=== PATIENT | female | born 1975 | race Hispanic/Latino ===

== ENCOUNTER 2023-04-28 15:17 | Emergency (ER) | payer OTHER, SELFPAY ==
[2023-04-28 15:29] VITALS: BP 131/83; PULSE 85; RESP 24; TEMP 37.1; O2SAT 99; BMI 27.4
--- NOTE | 2023-04-28 15:46 | ED.ABDPAIN ---
HPI - Abdominal Pain <Shari Alvarez PA-C - Last Filed: 04/28/23 17:41> General Chief Complaint: Abdominal Pain Stated Complaint: ABD pain Time Seen by Provider: 04/28/23 15:38 Source: patient and family Mode of arrival: Wheelchair History of Present Illness HPI narrative: Patient is a 47-year-old female presenting for evaluation of 4 days of burning with urination. She denies any fever. She states that her pain has significantly worsened today with pain in her right lower flank as well as in her lower abdomen. She reports that her sister was diagnosed with polycystic kidney disease. She notes that she had a kidney infection or possible stone along time ago and she can not remember when. She reports her last urinary tract infection was 14 years ago. She states she had a cystoscopy 12 years ago because of blood in her urine with no abnormal results. She denies nausea or vomiting. She reports a previous tubal ligation. She denies other abdominal surgeries. Related Data Previous Rx's Medication Instructions Recorded cephalexin 500 mg capsule 500 mg PO QID 5 days #20 caps 04/28/23 Allergies Allergy/AdvReac Type Severity Reaction Status Date / Time lisinopril AdvReac Intermediate Cough Verified 04/28/23 15:29 Review of Systems <Shari Alvarez PA-C - Last Filed: 04/28/23 17:41> Review of Systems Narrative: see HPI Patient History <Shari Alvarez PA-C - Last Filed: 04/28/23 17:41> Social History Smoking Status: Never smoker Smoking Status: Never smoker Substance Use Type: does not use Exam <Shari Alvarez PA-C - Last Filed: 04/28/23 17:41> Initial Vital Signs Initial Vital Signs: Vital Signs Temperature 98.8 F 04/28/23 15:29 Pulse Rate 85 04/28/23 15:29 Respiratory Rate 24 04/28/23 15:29 Blood Pressure 131/83 04/28/23 15:29 Pulse Oximetry 99 04/28/23 15:29 Oxygen Delivery Method Room Air 04/28/23 15:29 GENERAL: 47 year old patient appears stated age. Well-developed patient, in no acute distress. HEAD: Atraumatic. Normocephalic. EYES: Pupils equal round CARDIOVASCULAR: Regular rate and rhythm without murmurs, gallops, or rubs. RESPIRATORY: Clear to auscultation. Breath sounds equal bilaterally. No wheezes, rales, or rhonchi. GASTROINTESTINAL: Tender over suprapubic area. BACK: Nontender without deformity or crepitance. Right lower flank tenderness, no CVA tenderness NEURO: AOx3. SKIN: No rash or erythema of visible areas <Rick Montes De Oca DO - Last Filed: 04/28/23 17:42> Initial Vital Signs Initial Vital Signs: Vital Signs Temperature 98.8 F 04/28/23 15:29 Pulse Rate 85 04/28/23 15:29 Respiratory Rate 24 04/28/23 15:29 Blood Pressure 131/83 04/28/23 15:29 Pulse Oximetry 99 04/28/23 15:29 Oxygen Delivery Method Room Air 04/28/23 15:29 Course <Shari Alvarez PA-C - Last Filed: 04/28/23 17:41> Orders Ordered: ED Orders 04/28/23 15:47 Complete Blood Count AUTO DIFF Stat Comprehensive Metabolic Panel Stat Lipase Stat 04/28/23 15:54 Urine Culture Stat Urine Microscopic Stat 04/28/23 16:00 CT kidney ureter bladder (KUB) Stat Acetaminophen (Acetaminophen 325 Mg Tablet) 650 mg PO Q6H PRN PRN Reason: Fever/Mild Pain (1-3) Last Admin: 04/28/23 16:00 Dose: 650 mg Documented By: DELMY Ondansetron HCl (Ondansetron 4 Mg Odt) 4 mg PO NOW PRN PRN Reason: Nausea And Vomiting Ondansetron HCl (Ondansetron 4 Mg/2 Ml Inj) 4 mg IV NOW PRN PRN Reason: Nausea And Vomiting Discontinued Medications Cephalexin HCl (Cephalexin 250 Mg Capsule) 500 mg PO NOW ONE Stop: 04/28/23 17:33 Sodium Chloride (Normal Saline 0.9%) 1,000 mls @ 1,000 mls/hr IV BOLUS ONE Stop: 04/28/23 17:22 Last Infusion: 04/28/23 17:26 Dose: 0 mls/hr Documented By: Admin: 04/28/23 17:05 Dose: 1,000 mls/hr Documented By: HERSON Ketorolac Tromethamine (Ketorolac 30 Mg/Ml Vial) 15 mg IV NOW ONE Stop: 04/28/23 15:53 Last Admin: 04/28/23 16:00 Dose: 15 mg Documented By: DELMY Vital Signs Vital signs: Vital Signs - 8 hr 04/28/23 15:29 Temperature 98.8 F Pulse Rate 85 Respiratory Rate 24 Blood Pressure 131/83 Pulse Oximetry 99 Oxygen Delivery Method Room Air <Rick Montes De Oca DO - Last Filed: 04/28/23 17:42> Orders Ordered: ED Orders 04/28/23 15:47 Complete Blood Count AUTO DIFF Stat Comprehensive Metabolic Panel Stat Lipase Stat 04/28/23 15:54 Urine Culture Stat Urine Microscopic Stat 04/28/23 16:00 CT kidney ureter bladder (KUB) Stat Acetaminophen (Acetaminophen 325 Mg Tablet) 650 mg PO Q6H PRN PRN Reason: Fever/Mild Pain (1-3) Last Admin: 04/28/23 16:00 Dose: 650 mg Documented By: DELMY Ondansetron HCl (Ondansetron 4 Mg Odt) 4 mg PO NOW PRN PRN Reason: Nausea And Vomiting Ondansetron HCl (Ondansetron 4 Mg/2 Ml Inj) 4 mg IV NOW PRN PRN Reason: Nausea And Vomiting Discontinued Medications Cephalexin HCl (Cephalexin 250 Mg Capsule) 500 mg PO NOW ONE Stop: 04/28/23 17:33 Sodium Chloride (Normal Saline 0.9%) 1,000 mls @ 1,000 mls/hr IV BOLUS ONE Stop: 04/28/23 17:22 Last Infusion: 04/28/23 17:26 Dose: 0 mls/hr Documented By: Admin: 04/28/23 17:05 Dose: 1,000 mls/hr Documented By: HERSON Ketorolac Tromethamine (Ketorolac 30 Mg/Ml Vial) 15 mg IV NOW ONE Stop: 04/28/23 15:53 Last Admin: 04/28/23 16:00 Dose: 15 mg Documented By: DELMY Vital Signs Vital signs: Vital Signs - 8 hr 04/28/23 15:29 Temperature 98.8 F Pulse Rate 85 Respiratory Rate 24 Blood Pressure 131/83 Pulse Oximetry 99 Oxygen Delivery Method Room Air MDM - Abdominal Pain <Shari Alvarez PA-C - Last Filed: 04/28/23 17:41> Lab Data 04/28/23 15:47 01/07/24 15:47 Labs: Lab Results 04/28/23 04/28/23 Range/Units 15:47 15:54 WBC 15.2 H (4.5-11.0) X10^3/uL RBC 5.85 H (4.0-5.2) X10^6/uL Hgb 12.8 (12.0-16.0) g/dL Hct 40.0 (36-46) % MCV 68.4 L (80-100) fL MCH 21.9 L (26-34) PG MCHC 32.0 (30-36) % RDW 15.6 H (11.6-14.8) % Plt Count 320 (150-400) X10^3/uL Neut % (Auto) 67.7 (50-75) % Lymph % (Auto) 23.8 L (25-40) % [place] % (Auto) 6.8 (3-14) % Eos % (Auto) 1.0 L (2-4) % Baso % (Auto) 0.7 (0-2) % Neut # (Auto) 60455 H (4252-6834) /uL Lymph # (Auto) 3600 (9867-2628) /uL [place] # (Auto) 1000 H (0-900) /uL Eos # (Auto) 200 (0-450) /uL Baso # (Auto) 100 (0-100) /uL RBC Morphology See below Hypochromasia 1+ H Anisocytosis 1+ H Microcytosis 2+ H Rouleaux 1+ H Sodium 135 L (137-145) mmol/L Potassium 3.9 (3.4-5.1) mmol/L Chloride 101 (98-107) mmol/L Carbon Dioxide 24 (22-32) mmol/L BUN 11 (7-17) mg/dL Creatinine 0.71 (0.52-1.04) mg/dL Estimated GFR > 60 (>60) mL/min BUN/Creatinine Ratio 15.5 (6-22) Glucose 131 H (70-100) mg/dL Calcium 10.2 (8.4-10.2) mg/dL Total Bilirubin 0.5 (0.2-1.3) mg/dL AST 23 (14-36) IU/L ALT 13 (<35) IU/L Alkaline Phosphatase 63 (38-126) U/L Total Protein 7.4 (6.3-8.2) g/dL Albumin 4.1 (3.5-5.0) g/dL Globulin 3.3 (1.7-4.1) g/dL Albumin/Globulin Ratio 1.2 (1.0-2.8) Lipase 88 (23-300) U/L Urine RBC 1-5/hpf (0-5/HPF) Urine WBC 10-30/hpf H (0-5/HPF) Ur Squamous Epith Cells 10-30 /hpf H (0-5/HPF) Urine Bacteria Moderate (10-30) H (None) Ur Culture Indicated? Specimen cultured Point of care testing: Urine Dip Bedside Urine Glucose Negative Bedside Urine Bilirubin - Negative Bedside Urine Ketone - Negative Urine Specific [place] 1.000 Bedside Urine Occult Blood +++ Bedside Urine pH 6.0 Bedside Urine Protein +/- 15 Bedside Urine Urobilinogen - Negative Bedside Urine Nitrite - Negative Bedside Urine Leukocytes ++ [address] KUB: Radiologist's Impression: PROCEDURE: CT KIDNEY URETER BLADDER (KUB) INDICATIONS: Urinary burning, back pain TECHNIQUE: Axial sections were acquired from the lung bases to the pubic symphysis. Coronal and sagittal reformats were performed. For radiation dose reduction, the following was used: automated exposure control, adjustment of mA and/or kV according to patient size. COMPARISON: None. FINDINGS: Image quality: Diagnostic. Lower Chest: No significant findings. URINARY: Right Kidney: No stones or hydronephrosis. Right Ureter: No hydroureter. Left Kidney: No stones or hydronephrosis. Left Ureter: No hydroureter. Bladder: Moderate circumferential bladder wall thickening can be seen. The bladder is relatively decompressed, which limits its evaluation. ABDOMEN: Liver: No contour-deforming solid mass. Gallbladder: No radiopaque gallstones or wall thickening. Biliary ducts: No biliary dilation. Pancreas: No ductal dilation. Spleen: Size is within normal limits. Adrenal Glands: No adrenal nodules. Stomach and Bowel: Normal colonic caliber, without significant wall thickening. Peritoneum: No abnormal intraperitoneal fluid. No free air. Ventral Wall: No hernia. Abdominal Nodes: No enlarged retroperitoneal or mesenteric lymph nodes. Vessels: Aorta and inferior vena cava are normal in size. PELVIS: Pelvic Organs: The uterus appears normal for age. No adnexal masses are seen. Physiologic cystic changes can be seen of the ovaries. Pelvic Nodes: Unremarkable. Miscellaneous: No inguinal hernias are seen. Bones: Unremarkable. IMPRESSION: No obstructing stones or hydronephrosis. There is circumferential bladder wall thickening, which is consistent with urinary tract infection. Dictated by: Dudley Rivera M.D. on 04/28/2023 at 15:29 Approved by: Dudley Rivera M.D. on 04/28/2023 at 15:30 [facility] Narrative Medical decision making narrative: Patient is a 47-year-old female presenting for evaluation of severe pain after urinary burning for the last 4 days. She denies fever, but reports pain extending to her right lower back. CT scan did not show evidence of pyelonephritis or hydronephrosis or kidney stone. Patient has a UTI. Cephalexin has been sent to her pharmacy and she is been given 1 dose due to pharmacy closing. We will notify if changes needed based upon urine culture results. Differential diagnoses: Kidney stone, pyelonephritis, UTI Prior Charts reviewed: Labs reviewed and interpreted by myself: Imaging reviewed: No evidence of hydronephrosis or kidney stone noted on CT scan, UA shows blood and leukocytes and CT shows thickening of bladder wall which is indicative of inflammation and urinary tract infection. White blood cell count is elevated at 15, GFR was over 60, vital signs remain stable with appropriate blood pressure and pulse. Discussed with patient, she reports she feels safe to return home tonight. Symptoms seem significantly improved, recommend continued treatment with antibiotics and increased fluids. Recommend she returned to the emergency department if she should experience fever chills return of back pain or worsening lower abdominal pain. Otherwise, recommend follow up with primary care provider. Consultations: Reviewed case with janae Pascual to proceed with CT scan to rule out kidney stone and pyelonephritis. Patient's symptoms improved over duration of stay with above-stated therapies. She reports feeling significantly better after receiving Tylenol and Toradol and fluids. Findings and discharge diagnosis discussed with patient/family followed by verbalization of understanding Return precautions discussed with patient/family whom verbalize understanding of diagnosis and plan <Rick Montes De Oca, DO - Last Filed: 04/28/23 17:42> Lab Data Labs: Lab Results 04/28/23 04/28/23 Range/Units 15:47 15:54 WBC 15.2 H (4.5-11.0) X10^3/uL RBC 5.85 H (4.0-5.2) X10^6/uL Hgb 12.8 (12.0-16.0) g/dL Hct 40.0 (36-46) % MCV 68.4 L (80-100) fL MCH 21.9 L (26-34) PG MCHC 32.0 (30-36) % RDW 15.6 H (11.6-14.8) % Plt Count 320 (150-400) X10^3/uL Neut % (Auto) 67.7 (50-75) % Lymph % (Auto) 23.8 L (25-40) % [place] % (Auto) 6.8 (3-14) % Eos % (Auto) 1.0 L (2-4) % Baso % (Auto) 0.7 (0-2) % Neut # (Auto) 66830 H (3919-1799) /uL Lymph # (Auto) 3600 (8264-9256) /uL [place] # (Auto) 1000 H (0-900) /uL Eos # (Auto) 200 (0-450) /uL Baso # (Auto) 100 (0-100) /uL RBC Morphology See below Hypochromasia 1+ H Anisocytosis 1+ H Microcytosis 2+ H Rouleaux 1+ H Sodium 135 L (137-145) mmol/L Potassium 3.9 (3.4-5.1) mmol/L Chloride 101 (98-107) mmol/L Carbon Dioxide 24 (22-32) mmol/L BUN 11 (7-17) mg/dL Creatinine 0.71 (0.52-1.04) mg/dL Estimated GFR > 60 (>60) mL/min BUN/Creatinine Ratio 15.5 (6-22) Glucose 131 H (70-100) mg/dL Calcium 10.2 (8.4-10.2) mg/dL Total Bilirubin 0.5 (0.2-1.3) mg/dL AST 23 (14-36) IU/L ALT 13 (<35) IU/L Alkaline Phosphatase 63 (38-126) U/L Total Protein 7.4 (6.3-8.2) g/dL Albumin 4.1 (3.5-5.0) g/dL Globulin 3.3 (1.7-4.1) g/dL Albumin/Globulin Ratio 1.2 (1.0-2.8) Lipase 88 (23-300) U/L Urine RBC 1-5/hpf (0-5/HPF) Urine WBC 10-30/hpf H (0-5/HPF) Ur Squamous Epith Cells 10-30 /hpf H (0-5/HPF) Urine Bacteria Moderate (10-30) H (None) Ur Culture Indicated? Specimen cultured Point of care testing: Urine Dip Bedside Urine Glucose Negative Bedside Urine Bilirubin - Negative Bedside Urine Ketone - Negative Urine Specific [place] 1.000 Bedside Urine Occult Blood +++ Bedside Urine pH 6.0 Bedside Urine Protein +/- 15 Bedside Urine Urobilinogen - Negative Bedside Urine Nitrite - Negative Bedside Urine Leukocytes ++ 125 Esterase Discharge Plan Departure Patient Disposition: Home Clinical Impression: UTI (urinary tract infection) Qualifiers: Urinary tract infection type: acute cystitis Hematuria presence: with hematuria Qualified Code(s): N30.01 - Acute cystitis with hematuria Activity Restrictions/Additional Instructions: Thank you for coming in today for your care. You were diagnosed with urinary tract infection. CT scan did not show any evidence of kidney stone or kidney infection. Recommend continued treatment with antibiotic, increase fluids and rest. 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 If symptoms return, please follow up with primary care provider. If you should develop fever, chills, back pain nausea vomiting or worsening abdominal pain, please return to the emergency department. We will notify of any change antibiotic treatment as needed based upon urine culture results. Prescriptions: New cephalexin 500 mg capsule 500 mg PO QID 5 Days Qty: 20 0RF Referrals: Provider,Arjun RODRIGUEZ [Primary Care Provider] - Stand Alone Forms: Patient Portal/API ED Sign-out <Rick Montes De Oca, DO - Last Filed: 04/28/23 17:42> Cosign ED Attending Cosignature Attestation: Dr Montes De Oca Co-Sign Statement: I was available for consultation during this patient's emergency department visit. This chart is signed by myself for administrative purposes only. I did not have direct contact with this patient during this visit. They were seen independently by the APC.
[2023-04-28] MEDS: KETOROLAC 30 MG/ML VIAL 15 MG IV (16:00)
[2023-04-28] MEDS: ACETAMINOPHEN 325 MG TABLET 650 MG PO (16:00)
--- NOTE | 2023-04-28 16:00 | DI.CT.S_ITS ---
PROCEDURE: CT KIDNEY URETER BLADDER (KUB) INDICATIONS: Urinary burning, back pain TECHNIQUE: Axial sections were acquired from the lung bases to the pubic symphysis. Coronal and sagittal reformats were performed. For radiation dose reduction, the following was used: automated exposure control, adjustment of mA and/or kV according to patient size. COMPARISON: None. FINDINGS: Image quality: Diagnostic. Lower Chest: No significant findings. URINARY: Right Kidney: No stones or hydronephrosis. Right Ureter: No hydroureter. Left Kidney: No stones or hydronephrosis. Left Ureter: No hydroureter. Bladder: Moderate circumferential bladder wall thickening can be seen. The bladder is relatively decompressed, which limits its evaluation. ABDOMEN: Liver: No contour-deforming solid mass. Gallbladder: No radiopaque gallstones or wall thickening. Biliary ducts: No biliary dilation. Pancreas: No ductal dilation. Spleen: Size is within normal limits. Adrenal Glands: No adrenal nodules. Stomach and Bowel: Normal colonic caliber, without significant wall thickening. Peritoneum: No abnormal intraperitoneal fluid. No free air. Ventral Wall: No hernia. Abdominal Nodes: No enlarged retroperitoneal or mesenteric lymph nodes. Vessels: Aorta and inferior vena cava are normal in size. PELVIS: Pelvic Organs: The uterus appears normal for age. No adnexal masses are seen. Physiologic cystic changes can be seen of the ovaries. Pelvic Nodes: Unremarkable. Miscellaneous: No inguinal hernias are seen. Bones: Unremarkable. IMPRESSION: No obstructing stones or hydronephrosis. There is circumferential bladder wall thickening, which is consistent with urinary tract infection. Dictated by: Dudley Rivera M.D. on 04/28/2023 at 15:29 Approved by: Dudley Rivera M.D. on 04/28/2023 at 15:30
[2023-04-28 16:04] LABS: Add Manual Diff / Slide Review NO; Basophils Absolute Auto 100 /uL (0-100); Basophils Percent Auto 0.7 % (0-2); Eosinophils Absolute Auto 200 /uL (0-450); Hemoglobin 12.8 g/dL (12.0-16.0); Lymphocytes Absolute Auto 3600 /uL (1100-4500); Lymphocytes Percent Auto 23.8 % (25-40); Mean Corpuscular Hemoglobin 21.9 PG (26-34); Mean Corpuscular Volume 68.4 fL (80-100); Monocytes Absolute Auto 1000 /uL (0-900); Monocytes Percent Auto 6.8 % (3-14); Neutrophils Absolute Auto 10300 /uL (1500-7000); Neutrophils Percent Auto 67.7 % (50-75); Platelet Count 320 X10^3/uL (150-400); Red Blood Cell Count 5.85 X10^6/uL (4.0-5.2); Red Cell Distribution Width 15.6 % (11.6-14.8); White Blood Cell Count 15.2 X10^3/uL (4.5-11.0)
[2023-04-28 16:29] LABS: Alanine Aminotransferase 13 IU/L (<35); Albumin 4.1 g/dL (3.5-5.0); Albumin Globulin Ratio 1.2 (1.0-2.8); Alkaline Phosphatase 63 U/L (38-126); Aspartate Aminotransferase 23 IU/L (14-36); BUN Creatinine Ratio 15.5 (6-22); Bilirubin Total 0.5 mg/dL (0.2-1.3); Blood Urea Nitrogen 11 mg/dL (7-17); Calcium 10.2 mg/dL (8.4-10.2); Carbon Dioxide 24 mmol/L (22-32); Chloride 101 mmol/L (98-107); Estimated Glomerular Filt Rate > 60 mL/min (>60); Globulin 3.3 g/dL (1.7-4.1); Glucose 131 mg/dL (70-100); HEMOLYSIS < 15 (0-50); Lipase 88 U/L (23-300); Potassium 3.9 mmol/L (3.4-5.1); Sodium 135 mmol/L (137-145); Total Protein 7.4 g/dL (6.3-8.2)
[2023-04-28 16:37] LABS: Bacteria Urine Moderate (10-30); Culture Indicated Urine Specimen Cultured; RBC Urine 1-5/HPF (0-5/HPF); Squamous Epithelial Cell Urine 10-30 /HPF (0-5/HPF); WBC Urine 10-30/HPF (0-5/HPF)
[2023-04-28 16:57] LABS: Anisocytosis 1+; Hypochromasia 1+; Microcytosis 2+
[2023-04-28 16:58] LABS: Rouleaux 1+
[2023-04-28] MEDS: SODIUM CHLORIDE 0.9% 1,000 ML 1000 ML IV (17:05)
[2023-04-28] MEDS: cephALEXin 250 MG CAPSULE 500 MG PO (17:44)
[2023-04-28 17:45] VITALS: BP 122/74; PULSE 76; RESP 16; O2SAT 100
== END 2023-04-28 17:45 | disposition home or self-care (01) ==
PROVIDERS: Emergency Medicine; Emergency Provider Physician Assistant
DX: N30.01 Acute cystitis with hematuria (principal); R10.9 Unspecified abdominal pain
CPT/HCPCS: 36415; 74176; 80053; 81003; 81015; 83690; 85025; 87077; 87086; 87186; 96374; 99284; J1885